=== PATIENT | male | born 1965 | race Caucasian/White ===

== ENCOUNTER 2020-10-18 06:17 | Emergency (ER) | payer BC ==
[2020-10-18 06:27] VITALS: BP 132/84; PULSE 68; RESP 18; TEMP 97.5
[2020-10-18] MEDS ORDERED: DIPH,PERTUS(ACELL)TETVAC-LF 0.5 ML VIAL IM ONE (07:00)
[2020-10-18] MEDS ORDERED: CEPHALEXIN 500MG STARTER PACK 4 CAP BTL PO STA (07:00)
--- NOTE | 2020-10-18 07:02 | ED ---
General Adult HPI - General Chief complaint: Skin/Abscess/Foreign Body Stated complaint: Fishing hook injury Time Seen by Provider: 10/18/20 06:41 Source: patient Mode of arrival: ambulatory Limitations: no limitations - History of Present Illness Initial comments: 55-year-old male presents to the emergency room for a chief complaint of fishhook in the left thumb. Patient reports that he was fishing At least at get in his finger. Patient reports he tried to push it through but could not do so. Patient is not up-to-date on tetanus. Patient denies any other injuries. Denies difficulty moving the thumb.Patient has no other complaints at this time including shortness of breath, chest pain, abdominal pain, nausea or vomiting, headache, or visual changes. - Related Data Previous Rx's Medication Instructions Recorded Cephalexin [Keflex] 500 mg PO Q6HR 5 Days #20 cap 10/18/20 Allergies Allergy/AdvReac Type Severity Reaction Status Date / Time Penicillins AdvReac Rash/Hives Verified 10/18/20 06:28 Review of Systems ROS Statement: Those systems with pertinent positive or pertinent negative responses have been documented in the HPI. ROS Other: All systems not noted in ROS Statement are negative. Past Medical History Additional Past Medical History / Comment(s): gout History of Any Multi-Drug Resistant Organisms: None Reported Past Surgical History: Appendectomy Past Psychological History: No Psychological Hx Reported Smoking Status: Former smoker Past Alcohol Use History: Occasional Past Drug Use History: None Reported General Exam Limitations: no limitations General appearance: alert, in no apparent distress Head exam: Present: atraumatic, normocephalic, normal inspection Eye exam: Present: normal appearance, PERRL, EOMI. Absent: scleral icterus, conjunctival injection, periorbital swelling ENT exam: Present: normal exam, mucous membranes moist Neck exam: Present: normal inspection. Absent: tenderness, meningismus, lymphadenopathy Respiratory exam: Present: normal lung sounds bilaterally. Absent: respiratory distress, wheezes, rales, rhonchi, stridor Cardiovascular Exam: Present: regular rate, normal rhythm, normal heart sounds. Absent: systolic murmur, diastolic murmur, rubs, gallop, clicks Extremities exam: Present: full ROM (Full range of motion of the left thumb.), normal capillary refill (Capillary refill less than 2 seconds left thumb.), other (Shelley noted to lateral aspect left thumb, hook already cut) Course Vital Signs 10/18/20 06:23 Temperature 97.5 F L Pulse Rate 68 Respiratory 18 Rate Blood Pressure 132/84 O2 Sat by Pulse 95 Oximetry Medical Decision Making - Medical Decision Making Shelley is arty cut it is too short to push through and remove the rosa. Therefore I did have to back out the fishhook and was able to remove it. Pt will be started on antibiotics to prevent infection given this is a puncture wound. Tetanus updated. He will follow-up with his doctor. He will return here for any signs of infection. Disposition Clinical Impression: Shelley injury to finger Disposition: HOME SELF-CARE Condition: Good Instructions (If sedation given, give patient instructions): Soft Tissue Foreign Body (ED) Additional Instructions: Please keep the area clean. Monitor for signs of infection such as spreading or streaking redness, swelling, fever and return if these occur. Take antibiotic as directed to prevent infection. Return for any worsening symptoms. Prescriptions: Cephalexin [Keflex] 500 mg PO Q6HR 5 Days #20 cap Is patient prescribed a controlled substance at d/c from ED?: No Referrals: Mauro Wilhelm DO [Primary Care Provider] - 1-2 days Time of Disposition: 07:00
== END 2020-10-18 07:10 | disposition home or self-care (01) ==
LOC: EC 06:17
DX: S61.042A Puncture wound with foreign body of left thumb without damage to nail, initial encounter (principal); M10.9 Gout, unspecified; Z87.891 Personal history of nicotine dependence; Z88.0 Allergy status to penicillin; Z23 Encounter for immunization; W45.8XXA Other foreign body or object entering through skin, initial encounter
CPT/HCPCS: 90471; 90715; 99283